=== PATIENT | male | born 1980 | race Caucasian/White ===

== ENCOUNTER 2023-01-22 12:23 | Emergency (ER) | payer OTHER ==
[~2023-01-22] VITALS: Ht 180.3 cm; Wt 94.3 kg
--- OUTSIDE RECORDS SUMMARY | ~2023-01-22 | XMS | Continuity of Care Document ---
Demographics + + + | Address | [address] | | | [place] [address] | + + + | Preferred Language | Unknown | + + + | Marital Status | | + + + | Jew Affiliation | Unknown | + + + | Race | White | + + + | Ethnic Group | Not or | + + + Author + + + | Author | [facility] | + + + | Organization | [facility] | + + + | Address | [address] | | | [place] [address] | + + + | Phone | | + + + Care Team Providers + + + + | Care Ethanol Operations Manager Name | Role | Phone | + + + + Unavailable | Unavailable | + + + + Allergies and Intolerances + + + + + + | date | description | facility | reaction | severity | + + + + + + | (no date) | Penicillins | [facility] | (no reaction) | (no severity) | + + + + + + Encounters No information. Functional Status No information. Immunizations No information. Medications No information. Problems + + + + | date | description | facility | + + + + | 2023-01-26 14:00 | [facility] | [facility] | | | AND [facility] | | + + + + Procedures No information. Results/Labs No information. Social History No information. Vital Signs No information."
--- OUTSIDE RECORDS SUMMARY | ~2023-01-22 | XMS | Continuity of Care Document ---
Demographics + + + | Address | [address] | | | [place] [address] | + + + | Preferred Language | Unknown | + + + | Marital Status | | + + + | Latter-Day Affiliation | Unknown | + + + | Race | White | + + + | Ethnic Group | Not or | + + + Author + + + | Author | [place] | + + + | Organization | [place] | + + + | Address | [address] | | | [place] [address] | + + + | Phone | | + + + Care Team Providers + + + + | Care Director Of Search Engine Optimization Name | Role | Phone | + [...]
[~2023-01-22 12:23] MED LIST: NORCO 5-325 TA1 EACH PO; ZOFRAN4 MG PO
[2023-01-22 14:36] LABS: BASOPHILS 0.8 % (0-2); EOSINOPHILS 2.5 % (0-6); HEMOGLOBIN 14.4 g/dL (12.0-18.0); MCH 30.9 (27-36); MCHC 33.6 g/dl (30-36); NEUTROPHILS 52.7 % (39-80); PLATELET COUNT 208 K/uL (140-440); RBC 4.68 M/ul (4.3-5.7); RDW 13.5 (10.5-15.0)
[2023-01-22 14:44] LABS: ALBUMIN 3.8 g/dL (3.4-5.0); ALBUMIN/GLOBULIN RATIO 1.19 (1.1-2.4); ANION GAP 11.3 (7-21); BILIRUBIN, TOTAL 0.3 ng/dL (0.2-1.0); BUN/CREATININE RATIO 16.66 (6.0-28.6); CREATININE, SERUM 0.9 mg/dL (0.70-1.30); POTASSIUM 4.3 mmol/L (3.5-5.1)
[2023-01-22 16:31] VITALS: BP 127/90
== END 2023-01-22 16:33 | disposition home or self-care (01) ==
LOC: ED 12:23
PROVIDERS: Emergency Medicine
DX: K40.90 Unilateral inguinal hernia, without obstruction or gangrene, not specified as recurrent (principal); F17.200 Nicotine dependence, unspecified, uncomplicated; Z88.0 Allergy status to penicillin
CPT/HCPCS: 36415; 74177; 80053; 85025; 99284-25; Q9967

== ENCOUNTER 2025-04-09 10:48 | Emergency (ER) | payer OTHER ==
[~2025-04-09] VITALS: Ht 180.3 cm; Wt 89.0 kg
[2025-04-09] MEDS ORDERED: HYDROCODONE/APAP 10/325 1 TAB PO ONE (11:00)
[2025-04-09 12:05] VITALS: BP 108/80
== END 2025-04-09 12:06 | disposition home or self-care (01) ==
LOC: ED 10:48
DX: S93.402A Sprain of unspecified ligament of left ankle, initial encounter (principal); X50.9XXA Other and unspecified overexertion or strenuous movements or postures, initial encounter; Z88.0 Allergy status to penicillin; F17.200 Nicotine dependence, unspecified, uncomplicated
CPT/HCPCS: 73610; 99283; A9270